=== PATIENT | female | born 2000 | race Caucasian/White ===

== ENCOUNTER 2021-08-04 12:31 | Emergency (ER) | payer OTHER, SELFPAY ==
--- NOTE | ~2021-08-04 | XR_ITS ---
EXAMINATION: XR HAND, RIGHT CLINICAL INFORMATION: Right hand/wrist pain COMPARISON: None TECHNIQUE: 3 views of the right hand FINDINGS: No fracture or dislocation. Alignment is normal. Soft tissues unremarkable. Cartilage spaces are preserved. XR/XR hand wrist RT IMPRESSION: Unremarkable right hand
[2021-08-04 14:55] VITALS: BP 102/55; PULSE 64; RESP 18; TEMP 36.8; O2SAT 99
[2021-08-04 15:04] VITALS: BP 108/76; PULSE 59; RESP 16; TEMP 36.8; O2SAT 100; BMI 22.6
--- NOTE | 2021-08-04 15:05 | ED_ITS ---
HPI - Extremity Injury (Upper) General Chief Complaint: Extremity Injury, Upper Stated Complaint: R Hand Injury 08/03/21 Time Seen by Provider: 08/04/21 15:05 Source: patient Mode of arrival: ambulatory Limitations: no limitations History of Present Illness HPI narrative: 21-year-old female past medical history significant for asthma presents to the emergency department with right hand pain. Patient tells me that she punched a TV, glass shattered, and since then she has been having right hand pain. Tells me she was frustrated last night and this is why she did this. is right hand dominant. Worse with movement better at rest. She tells me she does not feel like there is anything in there however she is unsure. She tells me she cleaned the area well. She is up to date on a tetanus shot. Denies SI/HI. Denies chest pain, shortness of breath, fevers, chills, nausea, vomiting, numbness, tingling, paresthesias. MD complaint: injury to: right and hand Onset (ago): day(s) (2) Other injuries: none Handedness: right Place: home Severity: moderate Relieving factors: immobilization Exacerbating factors: movement of extremity Context: other (punched glass) Associated symptoms: denies other symptoms Related Data Allergies Allergy/AdvReac Type Severity Reaction Status Date / Time No Known Allergies Allergy Verified 08/04/21 15:03 Review of Systems Review of Systems: Constitutional : No Weight loss, No Fever, No Chills, No Fatigue, No Malaise ENT/Mouth : No sore throat, No Rhinorrhea Eyes: No Eye Pain, No Swelling, No Redness Cardiovascular : No Chest Pain, No SOB, No Dyspnea on Exertion, No Orthopnea, No Edema, No Palpitations Respiratory : No Cough, No Sputum, No Wheezing Gastrointestinal : No Nausea, No Vomiting, No Diarrhea, No Constipation, No abdominal Pain, No Hematochezia, No Melena Genitourinary : No Dysuria, No Urinary Frequency, No Hematuria, Musculoskeletal : + joint pain, No Myalgias, + Joint Swelling Skin : No Skin Lesions, No rash, +lacerations Neuro : No Weakness, No Numbness, No Dizziness, No Headache All other systems reviewed and are negative Yes all other systems are reviewed and are negative PMFSH Past Medical History Attestation statement: The following information was validated with the patient. Source: old records reviewed and nursing notes reviewed Medical History (Updated 08/04/21 @ 15:18 by CASEY Lea) Asthma Social History Social History Advance Directives: No Advance Directives Information Provided: No Patient : No Physical Exam Vital Signs: Vital Signs: Last Vital Signs Temp 98.2 F 08/04/21 15:04 Pulse 59 08/04/21 15:04 Resp 16 08/04/21 15:04 BP 108/76 08/04/21 15:04 Pulse Ox 100 08/04/21 15:04 BMI result Body Mass Index 22.6 Vss Appearance: Alert.? Oriented X3.? No acute distress.? Head: Normocephalic, atraumatic, no step-offs or deformities Eyes: Pupils equal, round and reactive to light.? ENT: Pharynx normal.? Neck: Normal inspection.? Neck supple.? CVS: Normal heart rate and rhythm.? Pulses normal.? Respiratory: No respiratory distress.? Breath sounds normal.? Abdomen: Soft and nontender.? Skin: Skin warm and dry.? Normal skin color.? Normal skin turgor.? Extremities: No lower extremity edema.? 5/5 strength to bilateral upper and lower extremities + few lacerations on the dorsal aspect of right hand with slight swelling. No evident foreign bodies with visualization, transillumination and percussion. Full ROM to bilateral, hands, and wrists. No evident ligament or tendon involvement. (images below) Back: No midline tenderness, no C-spine tenderness, full range of motion, no CVA tenderness bilaterally Neuro: Oriented X 3.? No motor deficit.? No sensory deficit. Course Reevaluation(s) Reevaluation #1: I have close 1 of the lacerations with Dermabond, and 1 small butterfly stitch. The rest of lacerations do not need closure, antibiotic ointment has been applied to the areas. And a dry sterile dressing has been applied. At this time x-ray is negative, I am comfortable with discharging patient home. I have spoken to her about a possibility for retained foreign body and have advised her to return to the emergency department with new or worsening symptoms. Time: 15:52 MDM - Extremity Injury (Upper) MDM Narrative Medical decision making narrative: 1507 21 yo female presents to the ED with R hand pain and small lacerations on hand s/p punching a tv last night. Up to date on tetanous. Denies SI and HI and is in good spirits today. Physical examination significant for few lacerations on the dorsal aspect of the right hand. Slight swelling to the dorsal aspect of the right hand. Full range of motion to wrist and hand. No evident foreign bodies. No evident ligament or tendon involvement. Plan at this time is to obtain an x-ray to rule out fractures in to see of any foreign bodies are visualized. I will close a small lacerations using Dermabond. Medical Records Attestation: I reviewed the patient's medical records. Lab Data Attestation: I reviewed the patient's lab results. Imaging Data X-ray of right hand: Attestation: I personally reviewed and interpreted this imaging study as f jay jay: Radiologist's impression: FINDINGS: No fracture or dislocation. Alignment is normal. Soft tissues unremarkable. Cartilage spaces are preserved.? XR/XR hand wrist RT IMPRESSION: Unremarkable right hand? Critical Care Time Critical Care Time Critical Care Time: No Discharge Plan Discharge Clinical Impression: Hand pain, Laceration of hand Patient Disposition: Home, Self-Care Instructions: Laceration (ED), Laceration Without Closure (ED) Additional Instructions: Take your medications as prescribed. If you were prescribed antibiotics today, it is important that you take your medication to their entirety, do not skip any doses, do not finish them early. Take ibuprofen every 6 hours, Tylenol every 4 hours as needed for pain. Follow-up with your primary care provider this week. When you are Orthopedics number, if you continue to have hand pain, it is important that you follow-up with Orthopedics in 2-3 weeks. Return to the emergency department with new or worsening symptoms. In case of emergency call 911 As we discussed, unlikely that there is a foreign body in there however, there still a small chance of retained foreign body. If you feel at any point like there is anything in there please return for further evaluation. Referrals: Gasper Lopez MD [Physician] - 2 days Physician,None [Primary Care Provider] - 2 days Stand Alone Forms: Work/School Release
== END 2021-08-04 16:30 | disposition home or self-care (01) ==
LOC: HO.ED 15:30
PROVIDERS: Emergency Provider Emergency Medicine
DX: S61.411A Laceration without foreign body of right hand, initial encounter (principal); W25.XXXA Contact with sharp glass, initial encounter; Y93.9 Activity, unspecified; Y92.009 Unspecified place in unspecified non-institutional (private) residence as the place of occurrence of the external cause; Y99.9 Unspecified external cause status
CPT/HCPCS: 12001; 73110; 73130; 99283; 99284

== ENCOUNTER 2021-08-05 18:31 | Emergency (ER) | payer OTHER, SELFPAY | END 2021-08-05 20:25 | disposition left against medical advice (07) | LOC: HO.ED 20:21 | PROVIDERS: Emergency Provider Emergency Medicine | DX: T14.8XXD Other injury of unspecified body region, subsequent encounter (principal); X58.XXXD Exposure to other specified factors, subsequent encounter ==

== ENCOUNTER 2021-10-29 18:31 | Emergency (ER) | payer OTHER, SELFPAY ==
[2021-10-29 18:34] VITALS: BP 113/68; PULSE 84; RESP 17; TEMP 37; O2SAT 98; BMI 20.2
--- NOTE | 2021-10-29 19:00 | ED.ALLEREA ---
HPI - Allergic Reaction General Chief complaint: Allergic Reaction Stated complaint: allergic reaction/diff breathing Time Seen by Provider: 10/29/21 18:42 Source: patient Mode of arrival: ambulatory Limitations: no limitations History of Present Illness MD complaint: allergic reaction and hives Onset (ago): hour(s) (few) Exposure: food (?thinks it was oranges) Symptoms: rash, itching and difficulty breathing Severity: moderate Treatment prior to arrival: other (yrte) Previous Allergic Reaction History: none Related Data Previous Rx's Medication Instructions Recorded albuterol sulfate 90 mcg/actuation 2 puff INHALATION QID PRN #6.7 g 10/29/21 aerosol inhaler epinephrine 0.3 mg/0.3 mL 0.3 mg (0.3 mL) IM Q10M PRN #2 ea 10/29/21 injection, auto-injector prednisone 20 mg tablet 40 mg PO DAILY 4 Days #8 tab 10/29/21 Allergies Allergy/AdvReac Type Severity Reaction Status Date / Time No Known Allergies Allergy Verified 08/04/21 15:03 Review of Systems Review of Systems: Constitutional : No Fever, No Chills ENT/Mouth : positive oral swelling, No Hoarseness, No Swallowing Difficulty Eyes: No Eye Pain, No Swelling, No Redness Cardiovascular : No Chest Pain, No SOB Respiratory : No Cough, No Sputum, No Wheezing, pos Dyspnea Gastrointestinal : No Nausea, No Vomiting, No Diarrhea, No abdominal Pain Genitourinary : No Dysuria, No Urinary Frequency, No Hematuria Musculoskeletal : No joint pain, No Myalgias, No Joint Swelling Skin : No Skin Lesions, positive rash Neuro : No Weakness, No Numbness, No Headache Psych : No Anxiety/Panic, No Depression Heme/Lymph: No Bruising, No Lymphadenopathy Endocrine : No Polyuria, No Polydipsia All other systems reviewed and are negative PMFSH Past Medical History Attestation statement: The following information was validated with the patient. Medical History Asthma Social History Social History (Updated 10/29/21 @ 19:01 by Olya Ro DO) Patient Tobacco Use Status: Never used Tobacco Advance Directives: No Advance Directives Information Provided: No Physical Exam ED Vital Signs: Vital Signs - 24 hr 10/29/21 18:34 10/29/21 19:18 10/29/21 19:19 Temperature 98.6 F Pulse Rate 84 77 Respiratory Rate 17 16 Blood Pressure 113/68 115/63 Pulse Oximetry 98 100 BMI result Body Mass Index 20.2 Appearance: Alert. Oriented X3. No acute distress. Eyes: Pupils equal, round and reactive to light. ENT: Pharynx normal. No angioedema Neck: Normal inspection. Neck supple. CVS: Normal heart rate and rhythm. Pulses normal. Respiratory: No respiratory distress. Breath sounds diminished throughout Abdomen: Soft and nontender. Skin: Skin warm and dry. Normal skin color. mild diffuse hives noted on trunk and UE/neck Extremities: No lower extremity edema. No calf ttp Neuro: Oriented X 3. No motor deficit. No sensory deficit. Course Course Course Narrative: pateint improved stable for DC - lungs CTAB, hives resolved MDM - Allergic Reaction MDM Narrative Medical decision making narrative: 21 yo female with hx of asthma was [place] the park playing basketball comes in with hives and dyspnea at this time no signs of angioedema will need IV steroids, IV benadryl, IV pepcid, albuterol neb. No signs of anaphylaxis. Dispo per results and findings. Discharge Plan Discharge Clinical Impression: Allergic reaction Qualifiers: Encounter type: initial encounter Qualified Code(s): T78.40XA - Allergy, unspecified, initial encounter Patient Disposition: Home, Self-Care Instructions: General Allergic Reaction (ED) Additional Instructions: return to ED for any worsening symptoms or concerns Prescriptions: New prednisone 20 mg tablet 40 mg PO DAILY 4 Days Qty: 8 0RF epinephrine 0.3 mg/0.3 mL auto-injector 0.3 mg IM Q10M PRN (Reason: anaphylaxis) Qty: 2 0RF Rx Instructions: for 2 doses albuterol sulfate 90 mcg/actuation HFA aerosol inhaler 2 puff inhalation QID PRN (Reason: shortness of breath or wheezing) Qty: 6.7 0RF Stand Alone Forms: Work/School Release
[2021-10-29] MEDS: Albuterol Sulfate (0.083%) 2.5 MG/3 ML VIAL.NEB INHALE (19:04)
[2021-10-29] MEDS: diphenhydrAMINE HCL 50 MG/ML VIAL 25 MG IVPUSH (19:12)
[2021-10-29] MEDS: methylPREDNISolone Sod Succ 125 MG/2 ML VIAL IVPUSH (19:12)
[2021-10-29] MEDS: Famotidine/PF 20 MG/2 ML VIAL IVPUSH (19:14)
[2021-10-29] MEDS: 0.9 % Sodium Chloride 1,000 ML 999 ML IV (19:14)
[2021-10-29 19:18] VITALS: PULSE 77; RESP 16; O2SAT 100
[2021-10-29 19:19] VITALS: BP 115/63
[2021-10-29 20:00] VITALS: PULSE 77; O2SAT 97
== END 2021-10-29 20:17 | disposition home or self-care (01) ==
PROVIDERS: Emergency Provider Emergency Medicine
DX: L50.0 Allergic urticaria (principal); R06.02 Shortness of breath; R21 Rash and other nonspecific skin eruption; Z79.899 Other long term (current) drug therapy
CPT/HCPCS: 96361; 96374; 96375; 99284; J1200; J2930

== ENCOUNTER 2022-05-06 21:43 | Emergency (ER) | payer OTHER, SELFPAY ==
[2022-05-06 21:48] VITALS: BP 111/52; PULSE 105; RESP 18; TEMP 36.4; O2SAT 95; BMI 19.3
[2022-05-06] MEDS: diphenhydrAMINE HCL 25 MG TABLET 50 MG PO (21:59)
[2022-05-06] MEDS: Famotidine 20 MG TABLET PO (22:00)
[2022-05-06] MEDS: predniSONE 20 MG TABLET 60 MG PO (22:00)
--- NOTE | 2022-05-06 22:06 | ED.ALLEREA ---
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 The patient is unsure what he was exposed to to cause this allergic reaction. The patient has global hives around his torso, arms and neck, per patient's family member, top lip is slightly more swollen than unusual. The patient also endorses some mild abdominal pain. He reports headache, and stomach ache. The patient did not take any Benadryl prior to seeking medical attention in the ED. MD complaint: allergic reaction, hives and facial swelling (slightly swollen upper lip) Onset (ago): minute(s) (30) Exposure: unknown Symptoms: rash, itching, lip swelling and abdominal pain Severity: moderate Treatment prior to arrival: none Previous Allergic Reaction History: prior ED visit(s) (10/2021) Related Data Previous Rx's Medication Instructions Recorded albuterol sulfate 90 mcg/actuation 2 puff inhalation QID PRN 10/29/21 aerosol inhaler shortness of breath or wheezing #6.7 grams epinephrine 0.3 mg/0.3 mL 0.3 mg (0.3 mL) IM Q10M PRN 10/29/21 injection, auto-injector anaphylaxis #2 ea prednisone 20 mg tablet 40 mg PO DAILY 4 days #8 tabs 10/29/21 diphenhydramine HCl 25 mg capsule 50 mg PO TID PRN allergic reaction 05/06/22 (Allergy (diphenhydramine)) #20 caps epinephrine 0.3 mg/0.3 mL 0.3 mg (0.3 mL) IM Q10M PRN 05/06/22 injection, auto-injector anaphylaxis #2 ea famotidine 20 mg tablet (Pepcid) 20 mg PO BID rash #20 tabs 05/06/22 ondansetron 4 mg disintegrating 4 mg PO Q8H #14 tabs 05/06/22 tablet prednisone 20 mg tablet 40 mg PO DAILY rash 5 days #10 tabs 05/06/22 Allergies Allergy/AdvReac Type Severity Reaction Status Date / Time No Known Allergies Allergy Verified 08/04/21 15:03 Review of Systems Review of Systems: Constitutional : No Fever, No Chills , no body aches, no recent illness Head/Face: No facial swelling, No facial redness ENT/Mouth : +Top lip swelling, No oral/throat swelling, No Hoarseness, No Swallowing Difficulty Cardiovascular : No Chest Pain, No SOB, No palpitations Respiratory : No Cough, No Sputum, No Wheezing, No Smoke Exposure, No Dyspnea Gastrointestinal : No Nausea, No Vomiting, No Diarrhea, + abdominal Pain Skin : No Skin Lesions, + Hives Neuro : No Weakness, No Headache, No dizziness, Denies contact with known allergen (oranges) Yes all other systems are reviewed and are negative [facility] Past Medical History Attestation statement: The following information was validated with the patient. Source: old records reviewed, obtained from family and nursing notes reviewed Medical History Asthma Social History Social History Patient Tobacco Use Status: Never used Tobacco Advance Directives: No Advance Directives Information Provided: No Physical Exam ED Vital Signs: Vital Signs - 24 hr 05/06/22 21:48 Temperature 97.6 F Pulse Rate 105 H Respiratory Rate 18 Blood Pressure 111/52 L Pulse Oximetry 95 Oxygen Delivery Method Room Air BMI result Body Mass Index 19.3 vital signs have been reviewed as normal and appeared to be correct. Blood pressure 111/52. Heart rate 105. Respiration rate normal. Temperature normal. Oxygen saturation normal. Appearance: Alert. Oriented X3. No acute distress. No signs of angioedema noted. Head: Normal external exam. Normocephalic. Atraumatic. Eyes: PERRLA. EOMI. Conjunctiva and sclera normal. Eyelids normal. ENT: Pharynx normal. Uvula midline. Moist mucous membranes. No lesions/ulcerations or masses noted on the tongue. Normal voice. No trismus noted. No drooling noted. No muffled voice noted. No stridor noted Neck: Normal inspection. Neck supple. FROM. No adenopathy. No tracheal deviation noted. No crepitus is noted. No meningeal signs. CVS: Normal heart rate and rhythm. Heart sound normal. Pulses normal throughout. No murmurs/rales/gallops. Respiratory: No respiratory distress. Painless inspiration. Breath sounds normal. No wheezes/rales/rhonchi noted. No accessory muscle usage noted or decreased air movement noted. Abdomen: Soft, tender to palpation. Bowel sounds normal in all 4 quadrants. No distention noted. No organomegaly noted. No visible injury noted. Back: Nontender. Skin: Skin warm and dry. Normal skin color. Normal skin turgor. Urticaria noted globally over torso, arms, and neck. No other rashes/lesions/lacerations noted. Extremities: No lower extremity edema. No calf tenderness is noted. Extremities exhibit normal range of motion and nontender. Neuro: Oriented X 3. No motor deficit. No sensory deficit. Normal steady gait. No focal neuro deficits noted. CN's II-XII intact bilaterally? Vascular: Normal cap refill. No cyanosis noted to upper extremity nails. Course Course Course Narrative: 10pm -The patient is a 21 year-old male with PMH significant for asthma, presenting for an allergic reaction. 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 The patient is unsure what he was exposed to to cause this allergic reaction. The patient has global hives around his torso, arms and neck, per patient's family member, top lip is slightly more swollen than unusual. The patient also endorses some mild abdominal pain. He denies headache, and stomach ache. Patient has urticaria globally around torso, arms, and neck. Patient endorses abdominal tenderness to palpation. Patient denies difficulty breathing, nausea, or difficulty managing secretions. Plan: PO Benadryl, Pepcid, Prednisone. IMP/Plan: Allergic rxn. Not anaphylaxis. Not sepsis/ infectious etiology. Patient well appearing in no acute distress, breathing easily without throat symptoms. Speaking full sentences, and handling secretions without difficulty. There is no obvious threat to airway. Lungs are CTA in all hastings. No signs of angioedema, stridor, airway compromise, anaphylaxis or anaphylactic shock. Not c/w SSSS/ TEN/ Eryth multiforme/ Dumont Johnsons. Given HPI and PE - Will watch and observe. If patient continues to be symptom free - will d/c with return precautions. Patient understands and agrees with plan Reevaluation(s) Reevaluation #1: Patient symptoms have improved. Will DC home with instructions to follow-up with PCP for allergy testing and to return if any new or worsening symptoms. Patient understands agrees with this plan. Time: 23:47 MDM - Allergic Reaction Medical Records Attestation: I reviewed the patient's medical records. Discharge Plan Discharge Clinical Impression: Allergic reaction, Urticaria Patient Disposition: Home, Self-Care Instructions: Urticaria (ED), General Allergic Reaction (ED) Additional Instructions: You were seen for an allergic reaction today. If you develop any trouble breathing or swallowing or any nausea vomiting you need to return. If you ever give yourself the EpiPen you will need to come to the emergency department to be monitor. Prescriptions: New diphenhydramine HCl [Allergy (diphenhydramine)] 25 mg capsule 50 mg PO TID PRN (Reason: allergic reaction) Qty: 20 0RF famotidine [Pepcid] 20 mg tablet 20 mg PO BID Qty: 20 0RF prednisone 20 mg tablet 40 mg PO DAILY 5 Days Qty: 10 0RF epinephrine 0.3 mg/0.3 mL auto-injector 0.3 mg IM Q10M PRN (Reason: anaphylaxis) Qty: 2 0RF Rx Instructions: for 2 doses ondansetron 4 mg tablet,disintegrating 4 mg PO Q8H Qty: 14 0RF No Action prednisone 20 mg tablet 40 mg PO DAILY 4 Days Qty: 8 0RF epinephrine 0.3 mg/0.3 mL auto-injector 0.3 mg IM Q10M PRN (Reason: anaphylaxis) Qty: 2 0RF Rx Instructions: for 2 doses albuterol sulfate 90 mcg/actuation HFA aerosol inhaler 2 puff inhalation QID PRN (Reason: shortness of breath or wheezing) Qty: 6.7 0RF Referrals: Physician,None [Primary Care Provider] - 2 days (Your PCP for further allergy testing) Stand Alone Forms: Work/School Release
== END 2022-05-07 00:21 | disposition home or self-care (01) ==
PROVIDERS: Emergency Provider Internal Medicine
DX: T78.40XA Allergy, unspecified, initial encounter (principal); L50.9 Urticaria, unspecified; X58.XXXA Exposure to other specified factors, initial encounter
CPT/HCPCS: 99282; 99283; Q0163

== ENCOUNTER 2022-05-28 17:50 | Emergency (ER) | payer OTHER, SELFPAY ==
--- NOTE | ~2022-05-28 | XR_ITS ---
EXAMINATION: XR HUMERUS, LEFT CLINICAL INFORMATION: Laceration with glass COMPARISON: None TECHNIQUE: AP and lateral views of the left humerus. FINDINGS: Small posterior soft tissue laceration at the distal aspect of the upper arm on the lateral view. No radiodense foreign body. No fracture or malalignment. Small bone fragment adjacent to the olecranon is well-corticated and presumably due to chronic fragmentation and/or remote injury. XR/XR humerus LT IMPRESSION: 1. No acute osseous injury. 2. No radiodense foreign body.
[2022-05-28 18:26] VITALS: BP 116/57; PULSE 70; RESP 16; TEMP 37; O2SAT 98; BMI 19.3
--- NOTE | 2022-05-28 22:01 | ED_ITS ---
HPI - Wound/Laceration General Chief Complaint: Wound/Laceration Stated Complaint: L Arm lac Time Seen by Provider: 05/28/22 21:28 Source: patient Mode of arrival: ambulatory Limitations: no limitations History of Present Illness HPI narrative: 21-year-old female who is healthy who presents with laceration to the left upper arm. Patient tells me that she fell into a glass frame causing the glass to break and causing laceration to her left upper arm. Her tetanus status is unknown Related Data Previous Rx's Medication Instructions Recorded albuterol sulfate 90 mcg/actuation 2 puff inhalation QID PRN 10/29/21 aerosol inhaler shortness of breath or wheezing #6.7 grams epinephrine 0.3 mg/0.3 mL 0.3 mg (0.3 mL) IM Q10M PRN 10/29/21 injection, auto-injector anaphylaxis #2 ea prednisone 20 mg tablet 40 mg PO DAILY 4 days #8 tabs 10/29/21 diphenhydramine HCl 25 mg capsule 50 mg PO TID PRN allergic reaction 05/06/22 (Allergy (diphenhydramine)) #20 caps epinephrine 0.3 mg/0.3 mL 0.3 mg (0.3 mL) IM Q10M PRN 05/06/22 injection, auto-injector anaphylaxis #2 ea famotidine 20 mg tablet (Pepcid) 20 mg PO BID rash #20 tabs 05/06/22 ondansetron 4 mg disintegrating 4 mg PO Q8H #14 tabs 05/06/22 tablet prednisone 20 mg tablet 40 mg PO DAILY rash 5 days #10 tabs 05/06/22 Allergies Allergy/AdvReac Type Severity Reaction Status Date / Time No Known Allergies Allergy Verified 05/28/22 18:28 Review of Systems Review of Systems: Yes all other systems are reviewed and are negative Constitutional: Constitutional: Reports no additional constitutional complai nts, Denies body ache(s), Denies chills, Denies fever(s), Denies headache(s) and Denies weakness Eyes: Eyes: Reports no additional eye complaints and Denies change in vision ENT: Reports system reviewed and no additional complaints, except as documented, Denies dizziness, Denies headache(s), Denies nasal congestion, Denies nasal discharge and Denies neck pain Cardiovascular: Cardiovascular: Reports no additional cardiovascular complaints, Denies chest pain, Denies leg edema and Denies dyspnea Respiratory: Respiratory: Reports no additional respiratory complaints, Denies cough and Denies dyspnea Gastrointestinal: Gastrointestinal: Reports no additional gastrointestinal complaints, Denies abdominal pain, Denies diarrhea, Denies nausea and Denies vomiting Genitourinary: Genitourinary: Reports no additional female genitourinary complaints and Denies urinary incontinence Musculoskeletal: Musculoskeletal: Reports no additional musculoskeletal complaints, Denies back pain, Denies arthralgias, Denies joint swelling, Denies neck pain, Denies numbness and Denies tingling Integumentary/Breasts: Skin/Breast: Reports system reviewed and no additional complaints, except as docu and Denies rash Neurologic: Reports system reviewed and no additional complaints, except as documented, Denies Abnormal speech present, Denies dizziness, Denies headache(s), Denies numbness, Denies tingling and Denies weakness PMFSH Past Medical History Attestation statement: The following information was validated with the patient. Source: old records reviewed and nursing notes reviewed Medical History Asthma Social History Social History Patient Tobacco Use Status: Never used Tobacco Advance Directives: No Advance Directives Information Provided: No Physical Exam Vital Signs: Vital Signs: Last Vital Signs Temp 98.6 F 05/28/22 18:26 Pulse 70 05/28/22 18:26 Resp 16 05/28/22 18:26 BP 116/57 L 05/28/22 18:26 Pulse Ox 98 05/28/22 18:26 O2 Del Method 05/28/22 18:26 BMI result Body Mass Index 19.3 Const: General: cooperative, healthy appearing, comfortable and no acute distress Orientation/consciousness: patient oriented x3 Limitations: no limitations HEENT: Head: Yes normal to inspection Ears: hearing grossly normal bilaterally General nose exam: Normal external nose present Face and sinus: Yes normal facial exam Mouth: Normal oral and palatal mucosa present Throat: Yes posterior oropharynx normal Eyes: General: appearance normal, both eyes and all related structures Pupils: Equal, round and reactive pupils present Neck: Neck: Yes normal visual inspection Chest: Chest palpation & inspection: normal inspection of the chest Resp: Effort & Inspection: normal respiratory effort Auscultation: clear to auscultation bilaterally Cardio: Rate: regular rate Rhythm: regular rhythm Peripheral pulses: Peripheral pulses 2+ throughout GI: Inspection: Yes normal to inspection Palpation (GI): Soft to palpation and nontender Auscultation: normal bowel sounds Back/Spine/Pelvis: Thoracic/Lumbar Spine: thoracic and lumbar spine normal to inspection Skin: General skin exam: no rashes or lesions noted Neuro: General: patient oriented x3, no focal motor deficits and normal sensation to monofilament Cranial nerves: Yes Equal, round and reactive pupils present Cognition (Neuro): normal cognition Speech: No Abnormal speech present Gait exam (Neuro): Normal gait present Motor exam (neuro): 5/5 motor strength present throughout Extrem: General: Yes normal to inspection Shoulder/upper arm images: 1. 4cm laceration. no fb MDM - Wound/Laceration MDM Narrative Medical decision making narrative: Laceration to LUE from glass. Will check x-ray to eval for FB Will give tetanus See procedure note for laceration repair Differential Diagnosis Differential diagnosis: Likely laceration Medical Records Attestation: I reviewed the patient's medical records. Lab Data Attestation: I reviewed the patient's lab results. Imaging Data humerus x-ray: Attestation: I personally reviewed and interpreted this imaging study as follows: Radiologist's impression: ECHNIQUE: AP and lateral views of the left humerus. FINDINGS: Small posterior soft tissue laceration at the distal aspect of the upper arm on the lateral view. No radiodense foreign body. No fracture or malalignment. Small bone fragment adjacent to the olecranon is well-corticated and presumably due to chronic fragmentation and/or remote injury. XR/XR humerus LT IMPRESSION: 1.? No acute osseous injury. 2.? No radiodense foreign body. ? Procedures Laceration Laceration 1: Site: upper extremity Side (If applicable): left Size (cm): 4 Description: linear Depth: simple, single layer Local Anesthetic: lidocaine 1% Amount of anesthesia used (mL): 5 Pre-repair: wound explored and irrigated extensively Skin layer closed with: vicryl Number of sutures: 6 Technique: simple, interrupted Discharge Plan Discharge Clinical Impression: Laceration Patient Disposition: Home, Self-Care Instructions: Laceration (ED) Additional Instructions: Sutures out in 7-10 days Prescriptions: No Action prednisone 20 mg tablet 40 mg PO DAILY 4 Days Qty: 8 0RF epinephrine 0.3 mg/0.3 mL auto-injector 0.3 mg IM Q10M PRN (Reason: anaphylaxis) Qty: 2 0RF Rx Instructions: for 2 doses albuterol sulfate 90 mcg/actuation HFA aerosol inhaler 2 puff inhalation QID PRN (Reason: shortness of breath or wheezing) Qty: 6.7 0RF diphenhydramine HCl [Allergy (diphenhydramine)] 25 mg capsule 50 mg PO TID PRN (Reason: allergic reaction) Qty: 20 0RF famotidine [Pepcid] 20 mg tablet 20 mg PO BID Qty: 20 0RF prednisone 20 mg tablet 40 mg PO DAILY 5 Days Qty: 10 0RF epinephrine 0.3 mg/0.3 mL auto-injector 0.3 mg IM Q10M PRN (Reason: anaphylaxis) Qty: 2 0RF Rx Instructions: for 2 doses ondansetron 4 mg tablet,disintegrating 4 mg PO Q8H Qty: 14 0RF Referrals: Physician,None [Primary Care Provider] -
[2022-05-28] MEDS: Diphth,Pertus(ACell),Tet Adult 0.5 ML SYRINGE IM (22:15)
[2022-05-28] MEDS: Lidocaine HCl 1 % MPF 2 ML VIAL INFILTRATI (22:17)
== END 2022-05-28 22:57 | disposition home or self-care (01) ==
PROVIDERS: Emergency Provider Emergency Medicine
DX: S41.112A Laceration without foreign body of left upper arm, initial encounter (principal); S40.812A Abrasion of left upper arm, initial encounter; W25.XXXA Contact with sharp glass, initial encounter; Y93.9 Activity, unspecified; Y92.9 Unspecified place or not applicable; Y99.9 Unspecified external cause status; Z79.899 Other long term (current) drug therapy
CPT/HCPCS: 12002; 73060; 90471; 90715; 99282; 99284

== ENCOUNTER 2022-06-12 12:53 | Emergency (ER) | payer OTHER, SELFPAY ==
[2022-06-12 13:27] VITALS: BP 112/52; PULSE 53; RESP 20; TEMP 36.4; O2SAT 99; BMI 19.3
--- NOTE | 2022-06-12 14:02 | ED.SKABFB ---
HPI - Skin/Abscess/Foreign Bdy General Chief complaint: Skin/Abscess/Foreign Body Stated complaint: stitch Time Seen by Provider: 06/12/22 13:50 Source: patient Mode of arrival: ambulatory Limitations: no limitations History of Present Illness HPI narrative: Patient is a 21 old female presents emergency department for evaluation of healed laceration to left posterior forearm and suture removal. She was seen in the emergency department 2 weeks ago after falling into a glass frame. States she has stitches placed at that time and was advised to come back for removal. Denies fevers, chills, purulent drainage, redness, swelling, pain. Related Data Previous Rx's Medication Instructions Recorded albuterol sulfate 90 mcg/actuation 2 puff inhalation QID PRN 10/29/21 aerosol inhaler shortness of breath or wheezing #6.7 grams epinephrine 0.3 mg/0.3 mL 0.3 mg (0.3 mL) IM Q10M PRN 10/29/21 injection, auto-injector anaphylaxis #2 ea prednisone 20 mg tablet 40 mg PO DAILY 4 days #8 tabs 10/29/21 diphenhydramine HCl 25 mg capsule 50 mg PO TID PRN allergic reaction 05/06/22 (Allergy (diphenhydramine)) #20 caps epinephrine 0.3 mg/0.3 mL 0.3 mg (0.3 mL) IM Q10M PRN 05/06/22 injection, auto-injector anaphylaxis #2 ea famotidine 20 mg tablet (Pepcid) 20 mg PO BID rash #20 tabs 05/06/22 ondansetron 4 mg disintegrating 4 mg PO Q8H #14 tabs 05/06/22 tablet prednisone 20 mg tablet 40 mg PO DAILY rash 5 days #10 tabs 05/06/22 Allergies Allergy/AdvReac Type Severity Reaction Status Date / Time No Known Allergies Allergy Verified 05/28/22 18:28 Review of Systems Review of Systems: Skin: Healed laceration as noted in HPI Yes all other systems are reviewed and are negative PMFSH Past Medical History Attestation statement: The following information was validated with the patient. Source: old records reviewed Medical History Asthma Social History Social History Patient Tobacco Use Status: Never used Tobacco Advance Directives: No Advance Directives Information Provided: No Physical Exam Vital Signs: Vital Signs: Last Vital Signs Temp 97.5 F 06/12/22 13:27 Pulse 53 06/12/22 13:27 Resp 20 06/12/22 13:27 BP 112/52 L 06/12/22 13:27 Pulse Ox 99 06/12/22 13:27 O2 Del Method 06/12/22 13:27 BMI result Body Mass Index 19.3 Appearance: Alert.?Oriented to person, place and time. No acute distress.?Normal affect. Neck: Normal inspection.? Neck supple.?? CVS: Heart sounds normal. Normal heart rate and rhythm.? Pulses normal.?? Respiratory: No respiratory distress.? Lung sounds clear to auscultation bilaterally?? Abdomen: Soft and non-tender. Skin: Skin warm and dry.? Normal skin color.? Healed laceration to left posterior upper arm, [address], no erythema, swelling, warmth. Extremities: No lower extremity edema.? Neuro: Moves all extremities spontaneously. Sensation intact bilaterally. No focal neuro deficits. Ambulates with normal steady gait. Course Course Course Narrative: Patient is a 18 emergency department for suture removal. Was seen in the emergency department 05/28/2022, 2 weeks ago, 6 sutures were placed to the laceration at that time. Upon examination today, no concern for infection. Laceration has healed well. Six sutures were removed without complication. Patient tolerated procedure well. Discharged home in stable condition. MDM - Skin/Abscess/Foreign Bdy Medical Records Attestation: I reviewed the patient's medical records. Discharge Plan Discharge Clinical Impression: Laceration Patient Disposition: Home, Self-Care Additional Instructions: Stitches were removed today. There were no signs of infection. Return to the emergency department any new or worsening symptoms or concerns. Prescriptions: No Action prednisone 20 mg tablet 40 mg PO DAILY 4 Days Qty: 8 0RF epinephrine 0.3 mg/0.3 mL auto-injector 0.3 mg IM Q10M PRN (Reason: anaphylaxis) Qty: 2 0RF Rx Instructions: for 2 doses albuterol sulfate 90 mcg/actuation HFA aerosol inhaler 2 puff inhalation QID PRN (Reason: shortness of breath or wheezing) Qty: 6.7 0RF diphenhydramine HCl [Allergy (diphenhydramine)] 25 mg capsule 50 mg PO TID PRN (Reason: allergic reaction) Qty: 20 0RF famotidine [Pepcid] 20 mg tablet 20 mg PO BID Qty: 20 0RF prednisone 20 mg tablet 40 mg PO DAILY 5 Days Qty: 10 0RF epinephrine 0.3 mg/0.3 mL auto-injector 0.3 mg IM Q10M PRN (Reason: anaphylaxis) Qty: 2 0RF Rx Instructions: for 2 doses ondansetron 4 mg tablet,disintegrating 4 mg PO Q8H Qty: 14 0RF Interventions: ED Discharge Assessment Last Done: 06/12/22 15:10 Discharge Date/Time: 06/12/22 15:10
== END 2022-06-12 15:10 | disposition home or self-care (01) ==
PROVIDERS: Emergency Provider Emergency Medicine
DX: Z48.02 Encounter for removal of sutures (principal)
CPT/HCPCS: 99282

== ENCOUNTER 2023-06-25 16:05 | Emergency (ER) | payer OTHER, SELFPAY ==
[2023-06-25 16:14] VITALS: BP 110/72; PULSE 94; O2SAT 98; BMI 19.1
[2023-06-25 16:18] VITALS: BP 100/60; PULSE 83; RESP 16; TEMP 37.1; O2SAT 97
--- NOTE | 2023-06-25 16:42 | ED_ITS ---
HPI - Allergic Reaction General Chief complaint: Allergic Reaction Stated complaint: Allergic reaction, rash all over body. Time Seen by Provider: 06/25/23 16:35 Source: patient Mode of arrival: ambulatory Limitations: no limitations History of Present Illness HPI narrative: Patient comes to the emergency room complaining of an allergic reaction after drinking lemon iced tea. Patient states that approximately a year ago, she had an allergic reaction to orange. Patient states that approximately 1 hour after drinking the ice tea patient started developing hives all over the body, very itchy. Prior to arrival, patient took 4 tablets of Benadryl, 100 mg. Patient still complaining of hives and itching. Patient denies any difficulty breathing. Denies any swelling of the throat or difficulty swallowing or handling secretions. Related Data Previous Rx's Medication Instructions Recorded albuterol sulfate 90 mcg/actuation 2 puff inhalation QID PRN 10/29/21 aerosol inhaler shortness of breath or wheezing #6.7 grams epinephrine 0.3 mg/0.3 mL 0.3 mg (0.3 mL) IM Q10M PRN 10/29/21 injection, auto-injector anaphylaxis #2 ea prednisone 20 mg tablet 40 mg (2 x 20 mg) PO DAILY 4 days 10/29/21 #8 tabs diphenhydramine HCl 25 mg capsule 50 mg (2 x 25 mg) PO TID PRN 05/06/22 (Allergy (diphenhydramine)) allergic reaction #20 caps epinephrine 0.3 mg/0.3 mL 0.3 mg (0.3 mL) IM Q10M PRN 05/06/22 injection, auto-injector anaphylaxis #2 ea famotidine 20 mg tablet (Pepcid) 20 mg PO BID rash #20 tabs 05/06/22 ondansetron 4 mg disintegrating 4 mg PO Q8H #14 tabs 05/06/22 tablet prednisone 20 mg tablet 40 mg (2 x 20 mg) PO DAILY rash 5 05/06/22 days #10 tabs Allergies Allergy/AdvReac Type Severity Reaction Status Date / Time No Known Allergies Allergy Verified 06/25/23 16:14 Review of Systems Review of Systems: Constitutional : No Weight loss, No Fever, No Chills, No Night Sweats, No Fatigue, No Malaise ENT/Mouth : No Hearing loss, No Ear Pain, No Nasal Congestion, No Sinus Pain, No Hoarseness, No sore throat, No Rhinorrhea, No Swallowing Difficulty Eyes: No Eye Pain, No Swelling, No Redness, No Foreign Body, No Discharge, No Vision Changes Cardiovascular : No Chest Pain, No SOB, No Dyspnea on Exertion, No Orthopnea, No Edema, No Palpitations Respiratory : No Cough, No Sputum, No Wheezing, No Smoke Exposure, No Dyspnea Gastrointestinal : No Nausea, No Vomiting, No Diarrhea, No Constipation, No abdominal Pain, No Hematochezia, No Melena Genitourinary : no irregular bleeding, No Dysuria, No Urinary Frequency, No Hematuria, No Urinary Incontinence, No Urgency, No Flank Pain, No Urinary Flow Changes, No Hesitancy Musculoskeletal : No joint pain, No Myalgias, No Joint Swelling Skin : Complaining of hives, itchy Neuro : No Weakness, No Numbness, No Paresthesias, No Loss of Consciousness, No Dizziness, No Headache Psych : No Anxiety/Panic, No Depression, No SI/HI/AH/VH, No Social Issues, Heme/Lymph: No Bruising, No Bleeding,No Lymphadenopathy Endocrine : No Polyuria, No Polydipsia, No Temperature Intolerance PMFSH Past Medical History Medical History Asthma Social History Social History Patient Tobacco Use Status: Never used Tobacco Smoked in Last 30 Days: No Use of substances other than those prescribed or required for medical reasons: Yes Substance Use Type: Marijuana Advance Directives: No Advance Directives Information Provided: Yes Patient : No Physical Exam ED Vital Signs: Vital Signs - 24 hr 06/25/23 16:18 06/25/23 17:11 Temperature 98.7 F Pulse Rate 83 80 Respiratory Rate 16 16 Blood Pressure 100/60 120/76 Pulse Oximetry 97 97 Oxygen Delivery Method Room Air Room Air BMI result Body Mass Index 19.1 Const Other: Appearance: Alert. Oriented X3. No acute distress. Eyes: Pupils equal, round and reactive to light. ENT: Pharynx normal. Neck: Normal inspection. Neck supple. No lymph nodes noted. No crepitus CVS: Normal heart rate and rhythm. Pulses normal. Normal S1 and S2 Respiratory: No respiratory distress. Breath sounds normal. No Wheezing. No rales Abdomen: Soft and nontender. No rigidity. No distention. Skin: Skin warm and dry. Hives in face neck chest abdomen Extremities: No lower extremity edema. No Lacerations. No Rash Neuro: Oriented X 3. No motor deficit. No sensory deficit. Moving all extremities. No slurred speech. CN 2 through 12 grossly intact Psych: calm, cooperative, normal affect Course Course Course Narrative: -patient receiving IV fluids, Pepcid and Solu-Medrol. At this time, epinephrine pen not indicated. Also, already patient took 100 mg of Benadryl prior to arrival. Medications Administered Discontinued Medications Generic Name Dose Route Start Last Admin Trade Name Freq PRN Reason Stop Dose Admin Famotidine 20 mg 06/25/23 16:40 06/25/23 17:19 Famotidine/Pf 20 Mg/2 Ml Vial IVPUSH 06/25/23 16:41 20 mg ONCE ONE Administration Sodium Chloride 1,000 mls @ 999 mls/hr 06/25/23 16:40 06/25/23 18:20 Ns IVCONT 06/25/23 17:40 Infused .Q1H1M ONE Infusion Methylprednisolone Sodium Succinate 125 mg 06/25/23 16:40 06/25/23 17:19 Methylprednisolone Sod Succ 125 Mg/2 Ml Vial IVPUSH 06/25/23 16:41 125 mg ONCE ONE Administration Medical Decision Making Medical Decision Making [facility] Narrative: -after patient got fluids and medication as above mentioned, patient's rash/hives resolved. -patient's vital stable, patient feels completely back to baseline. -patient has an EpiPen at home Differential Diagnosis Differential Diagnoses: The differential diagnosis associated with the presentation includes (Allergic reaction, hypersensitivity) Critical Care Time Critical Care Time Critical Care Time: Yes Total Critical Care Time: 45 Attestation: I have personally provided critical care time. Time includes review of lab data, radiology results, discussion with consultants, and monitoring for potential decompensation. Intervention performed as documented. Discharge Plan Discharge Clinical Impression: Allergic reaction Patient Disposition: Home, Self-Care Instructions: General Allergic Reaction (ED) Additional Instructions: Avoid eating citrus fruits. Please discuss with your primary care physician the possibility of helping arrange an appointment with an bottoming machine operator for skin scratch test to figure out what causes it to have allergic reactions. Please follow-up with your primary care physician tomorrow. If you have any worsening or new symptoms, please return to the emergency room or call 911 Prescriptions: No Action prednisone 20 mg tablet 40 mg PO DAILY 4 Days Qty: 8 0RF epinephrine 0.3 mg/0.3 mL auto-injector 0.3 mg IM Q10M PRN (Reason: anaphylaxis) Qty: 2 0RF Rx Instructions: for 2 doses albuterol sulfate 90 mcg/actuation HFA aerosol inhaler 2 puff inhalation QID PRN (Reason: shortness of breath or wheezing) Qty: 6.7 0RF diphenhydramine HCl [Allergy (diphenhydramine)] 25 mg capsule 50 mg PO TID PRN (Reason: allergic reaction) Qty: 20 0RF famotidine [Pepcid] 20 mg tablet 20 mg PO BID Qty: 20 0RF prednisone 20 mg tablet 40 mg PO DAILY 5 Days Qty: 10 0RF epinephrine 0.3 mg/0.3 mL auto-injector 0.3 mg IM Q10M PRN (Reason: anaphylaxis) Qty: 2 0RF Rx Instructions: for 2 doses ondansetron 4 mg tablet,disintegrating 4 mg PO Q8H Qty: 14 0RF
[2023-06-25 17:11] VITALS: BP 120/76; PULSE 80; RESP 16; O2SAT 97
[2023-06-25] MEDS: Famotidine/PF 20 MG/2 ML VIAL IVPUSH (17:19)
[2023-06-25] MEDS: 0.9 % Sodium Chloride 1,000 ML 999 ML IVCONT (17:19)
[2023-06-25] MEDS: methylPREDNISolone Sod Succ 125 MG/2 ML VIAL IVPUSH (17:19)
--- NOTE | 2023-06-25 17:22 | PC.NURSE ---
20gIV placed in left AC w/o difficulty - medications administered per provider order. partner bedside. pt resting in no apparent distress at this time. no sob/wob noted at this time. airway remains patent. lung sounds clear throughout. respirations remain even and unlabored. call burrows placed within reach.
== END 2023-06-25 18:41 | disposition home or self-care (01) ==
PROVIDERS: Emergency Provider Emergency Medicine
DX: L50.0 Allergic urticaria (principal); Z79.899 Other long term (current) drug therapy
CPT/HCPCS: 96361; 96374; 96375; 99284; J2930

== ENCOUNTER 2023-08-09 01:10 | Emergency (ER) | payer OTHER, SELFPAY | END 2023-08-09 04:21 | disposition left against medical advice (07) | PROVIDERS: Emergency Provider Emergency Medicine | DX: T78.40XA Allergy, unspecified, initial encounter (principal); X58.XXXA Exposure to other specified factors, initial encounter; Z53.21 Procedure and treatment not carried out due to patient leaving prior to being seen by health care provider ==